=== PATIENT | male | born 1995 | race Caucasian/White ===

== ENCOUNTER 2016-12-29 14:23 | Emergency (ER) | payer SELFPAY ==
[~2016-12-29 14:23] MED LIST: BACITRACIN3.5 GM OPT OD; CLEOCIN PO; IBUPROFEN800 MG PO; NO MEDICATIONS
== END 2016-12-29 14:26 | disposition home or self-care (01) ==
LOC: SED 14:23
DX: S61.451A Open bite of right hand, initial encounter (principal); F17.210 Nicotine dependence, cigarettes, uncomplicated; W54.0XXA Bitten by dog, initial encounter; Y92.009 Unspecified place in unspecified non-institutional (private) residence as the place of occurrence of the external cause
CPT/HCPCS: 90715; 99283